=== PATIENT | female | born 1965 | race American Indian/Alaskan Native ===

== ENCOUNTER 2017-08-26 07:10 | Day surgery (SDC) | payer OTHER ==
[2017-08-26] MEDS ORDERED: DIPRIVAN 10 MG/ML IV ONE ×2 (07:13)
[2017-08-26] MEDS ORDERED: NACL 0.9% 1000 ML 1,000 ML IV SCH (08:00)
--- NOTE | 2017-08-26 08:38 | Short Stay Summary ---
Short Stay Documentation - Allergies and Medications Current Medications: Allergies No Known Allergies Allergy (Verified 08/26/17 07:31) Home Medications Medication Instructions Recorded Confirmed Last Taken Type Hydrochlorothiazide 90 mg PO DAILY 08/26/17 08/26/17 08/25/17 History Lovastatin 30 mg PO DAILY 08/26/17 08/26/17 08/25/17 History Omeprazole 180 mg PO BID 08/26/17 08/26/17 08/25/17 History metFORMIN 500 mg PO BID 08/26/17 08/26/17 08/25/17 History Active Medications Sodium Chloride (Nacl 0.9% 1000 Ml) 1,000 mls @ 50 mls/hr IV DIRECT JULIETA Last Admin: 08/26/17 08:10 Dose: 50 mls/hr - Brief post op/procedure progress note Date of procedure: 08/26/17 Pre-op diagnosis: 1. Dysphagia 2. Dyspepsia Post-op diagnosis: same (1. GERD 2. Hiatal hernia (small) 3. Gastritis 4. Duodenitis) Procedure: EGD with biopsy Anesthesia: MAC Findings: as above Surgeon: MARGO MOORE Estimated blood loss: none Pathology: list (1. Antrum) Specimen disposition: to lab Condition: stable - Disposition Condition at discharge: Stable Disposition: - TO HOME OR SELFCARE Short Stay Discharge Plan Activity: no restrictions Weight Bearing Status: Full Weight Bearing Diet: regular, low salt, diabetic Follow up with: RENE ORDONEZ MD [Primary Care Provider] - 7 Days
--- NOTE | 2017-08-26 08:57 | Anesthesia Consultation ---
Anesthesia Consult and Med Hx - Airway Anesthetic Teeth Evaluation: Good ROM Head & Neck: Adequate Mental/Hyoid Distance: Adequate Mallampati Class: Class II Intubation Access Assessment: Good - Pulmonary Exam CTA: Yes - Cardiac Exam Cardiac Exam: RRR - Pre-Operative Health Status ASA Pre-Surgery Classification: ASA3 Proposed Anesthetic Plan: MAC - Pre-Anesthesia Comment Pre-Anesthesia Comments: morbidly obese - Cardiovascular System Hx Hypertension: Yes - Endocrine Hx Cirrhosis: Yes Hx Non-Insulin Dependent Diabetes: Yes - Other Systems Hx Obesity: Yes
[2017-08-26 09:16] VITALS: BP 136/79
--- NOTE | 2017-08-26 13:29 | Post Anesthesia Evaluation ---
- Post Anesthesia Evaluation Patient Participated: Yes Airway Patent: Yes Stable Respiratory Function: Yes Nausea/Vomiting: No Temp > 96.8F: Yes Pain Manageable: Yes Adequeate Hydration: Yes Anesthesia Complications: No
--- NOTE | 2017-08-26 13:29 | Anesthesia Day of Surgery ---
Anesthesia Day of Surgery - Day of Surgery Patient Examined: Yes Patient H&P Reviewed: Yes Patient is NPO: Yes
== END 2017-08-26 07:11 | disposition home or self-care (01) ==
LOC: GIO 07:10
PROVIDERS: ATTEND Internal Medicine Gastroenterology
DX: K29.70 Gastritis, unspecified, without bleeding (principal); K29.80 Duodenitis without bleeding; K44.9 Diaphragmatic hernia without obstruction or gangrene; K21.9 Gastro-esophageal reflux disease without esophagitis; I10 Essential (primary) hypertension; E11.9 Type 2 diabetes mellitus without complications; E66.01 Morbid (severe) obesity due to excess calories; Z68.39 Body mass index [BMI] 39.0-39.9, adult; Z98.890 Other specified postprocedural states; Z90.710 Acquired absence of both cervix and uterus; Z87.891 Personal history of nicotine dependence
CPT/HCPCS: 43239; 82962; 88305; 88342; J2704; J7030